=== PATIENT | male | born 1970 | race Caucasian/White ===

== ENCOUNTER 2016-10-25 15:59 | Emergency (ER) | payer BC ==
[~2016-10-25] VITALS: Ht 177.8 cm; Wt 96.2 kg
--- NOTE | 2016-10-25 16:38 | PHYS DOC ---
Adult General Chief Complaint Chief Complaint: FLANK PAIN HPI HPI Patient is a 46 year old male who presents with right flank pain and possible kidney stone. Patient states about 2 years ago he had a kidney stone that felt very similar. Patient is in town visiting from [place] and staying at [facility] developed some right flank pain and difficulty urinating starting last night. Patient denies any fevers. Patient denies any vomiting/diarrhea but does have nausea. Currently in emergency room patient has no pain. Patient has no other complaints. Pertinent exam findings: Abdomen was soft nontender bowel sounds in all 4 quadrants ED course: Patient was seen and examined emergency room i-STAT, CT scan without contrast, IV fluids ordered 1716: Updated patient on CT results and lab results explained to him he is a 3 mm stone at the right UVJ. On examination the patient is pain free and ready go home. Pertinent Results: CT scan abdomen and pelvis without contrast shows a 3 mm stone at the right UVJ MDM: After reviewing the chart, CC/HPI/PMH, physical exam, [lab results], [ radiological results], I do not believe the patient has injured abdominal emergency warranting further workup and/or admission at this time. I do not believe the patient is septic stone. On reexamination the patient's pain is resolved and I believe the patient is stable for discharge and follow-up with his urologist when he returns back to [place]. Additional verbal discharge instructions were provided to the patient and that if symptoms get worse or any new symptoms arise that are worrisome to the patient he is to return to the emergency room immediately Review of Systems Review of Systems GEN: Denies fevers, chills, sweats HEENT: Denies blurred vision, sore throat CV: Denies chest pain RESP: Denies shortness of air, cough GI: Right flank pain NEURO: Denies confusion, dizziness MSK: Denies weakness, joint pain/swelling Current Medications Current Medications Current Medications Medications (Trade) Dose Ordered Sig/Gerda Start Time Stop Time Status Last Admin Dose Admin Sodium Chloride 1,000 ml @ 1,000 mls/hr 1X ONCE 10/25/16 16:45 10/25/16 17:44 10/25/16 16:58 1,000 MLS/HR Allergies Allergies Allergies Coded Allergies Type Severity Reaction Last Updated Verified No Known Drug Allergies 10/25/16 No Physical Exam Physical Exam GEN.: No apparent distress. Alert and oriented. HEENT: Head is normocephalic, atraumatic NECK: Supple. LUNGS: CTAB. HEART: RRR, S1, S2 present. Peripheral pulses intact ABDOMEN: Soft, nontender. Positive bowel sounds. EXTREMITIES: Without any cyanosis. NEUROLOGIC: Normal speech, normal tone PSYCHIATRIC: Normal affect, normal mood. SKIN: No ulcerations Current Patient Data Vital Signs Vital Signs Date Time Temp Pulse Resp B/P (MAP) Pulse Ox O2 Delivery O2 Flow Rate FiO2 10/25/16 16:30 98.5 97 15 138/92 (107) 95 Room Air 98.5 Lab Values Laboratory Tests Test 10/25/16 16:18 10/25/16 16:59 Urine Collection Type Unknown Urine Color Yellow Urine Clarity Clear Urine pH 6.0 Urine Specific [place] 1.020 Urine Protein 30 mg/dL (NEG-TRACE) Urine Glucose (UA) Negative mg/dL (NEG) Urine Ketones (Stick) Negative mg/dL (NEG) Urine Blood Large (NEG) Urine Nitrite Negative (NEG) Urine Bilirubin Negative (NEG) Urine Urobilinogen Dipstick 0.2 mg/dL (0.2 mg/dL) Urine Leukocyte Esterase Trace (NEG) Urine RBC 11-20 /HPF (0-2) Urine WBC 5-10 /HPF (0-4) Urine Squamous Epithelial Cells Occ /LPF Urine Bacteria Few /HPF (0-FEW) Urine Mucus Mod /LPF POC Hemoglobin 14.6 g/dL (14-18) POC Hematocrit 43 % (37-52) POC Sodium 142 mmol/L (135-145) POC Potassium 3.7 mmol/L (3.5-5.0) POC Chloride 104 mmol/L (98-110) POC Total CO2 24 mmol/L (23-32) Anion Gap 19 mmol/L (6-14) H POC Blood Urea Nitrogen 20 mg/dL (8-26) POC Creatinine 1.3 mg/dL (0.5-1.4) Glucose Level 111 mg/dL (70-99) H POC Ionized Calcium (Jarrett) 1.11 mmol/L (1.13-1.32) L Laboratory Tests 10/25/16 16:59 EKG EKG [] Radiology/Procedures Radiology/Procedures CT scan abdomen and pelvis without contrast shows a 3 mm stone at the right UVJ[ ] Course & Med Decision Making Course & Med Decision Making Pertinent Labs and Imaging studies reviewed. (See chart for details) [] Dragon Disclaimer Dragon Disclaimer This electronic medical record was generated, in whole or in part, using a voice recognition dictation system. Departure Departure Impression: Primary Impression: Ureteral calculus, right Disposition: HOME, SELF-CARE Condition: IMPROVED Patient Instructions: Kidney Stones Additional Instructions: Please follow up with her family doctor when she returned back to [facility] Ondansetron (ZOFRAN ODT) 4 Mg Tab.rapdis 1 TAB SL Q8HRS, #10 TAB Prov: ADELINA LEMA DO 10/25/16 Hydrocodone/Apap 5-325 (NORCO 5-325 TABLET) 1 Each Tablet 1-2 TAB PO Q4-6HRS for 2 Days, #12 TAB Prov: ADELINA LEMA DO 10/25/16 Tamsulosin Hcl (FLOMAX) 0.4 Mg Cap.er.24h 1 CAP PO DAILY for 7 Days, #7 CAP 11 Refills Prov: ADELINA LEMA DO 10/25/16 ADELINA LEMA DO Oct 25, 2016 16:38
[2016-10-25 16:42] LABS: BILIRUBIN,URINE NEGATIVE (NEG); GLUCOSE,URINE NEGATIVE (NEG); NITRITE,URINE NEGATIVE (NEG); PROTEIN,URINE 30 mg/dL (NEG-TRACE); UROBILINOGEN,URINE 0.2 mg/dL (0.2 mg/dL)
[2016-10-25] MEDS ORDERED: IV NORMAL SALINE 1000ML BAG 1,000 ML IV ONE (16:45)
[2016-10-25 16:56] LABS: BACTERIA,URINE FEW /HPF (0-FEW); SQUAMOUS EPITHELIAL CELL,UR OCC /LPF
--- NOTE | 2016-10-25 17:03 | RAD ---
CT of the abdomen and pelvis without contrast, 10/25/2016: History: Right-sided pain, kidney stones Noncontrast scans were obtained utilizing the renal stone protocol. There are several tiny intrarenal calculi present bilaterally. The largest of these measure only 2-3 mm. There is mild streaky perinephric edema on the right. The right renal collecting system and right ureter are mildly dilated. There is a 3 mm radiopacity along the posterior wall of the urinary bladder on the right compatible with a calculus lodged in the intramural segment of the distal right ureter. The left renal collecting system and left ureter are not dilated. The urinary bladder is collapsed and not well defined. The unopacified liver is unremarkable. The gallbladder, pancreas and spleen show no abnormality. There is moderate aortic calcific plaquing. There is slight dilatation of the infrarenal abdominal aorta measuring only 2.4 cm. No abdominal or pelvic adenopathy is seen. The bowel loops are not dilated. The appendix is visualized and is unremarkable. No free fluid or free air is evident in the abdomen or pelvis. Both inguinal rings are mildly dilated containing only fat and spermatic cord structures. IMPRESSION: 1. 3 mm obstructing calculus at the right ureterovesical junction. 2. Tiny bilateral intrarenal calculi. PQRS Compliance Statement: One or more of the following individualized dose reduction techniques were utilized for this examination: 1. Automated exposure control 2. Adjustment of the mA and/or kV according to patient size 3. Use of iterative reconstruction technique
[2016-10-25 17:04] LABS: POTASSIUM ISTAT 3.7 mmol/L (3.5-5.0)
[2016-10-25] MEDS ORDERED: HYDR-971 PO (17:23)
[2016-10-25] MEDS ORDERED: TAMS0.4C97 PO (17:23)
[2016-10-25] MEDS ORDERED: ONDA4TAB10 SL (17:23)
[2016-10-25 17:30] VITALS: BP 139/87
== END 2016-10-25 17:38 | disposition home or self-care (01) ==
LOC: ER 15:59
DX: N20.1 Calculus of ureter (principal)
CPT/HCPCS: 74176; 80047; 81001; 87086; 96360; 99285; J7030